=== PATIENT | female | born 1980 | race Caucasian/White ===

== ENCOUNTER 2018-06-29 21:57 | Inpatient (IN) | payer MEDICAID ==
[~2018-06-29] VITALS: Ht 162.6 cm; Wt 85.0 kg
[2018-06-29] MEDS ORDERED: ketorolac trometh. 30mg/ml inj. IV ONE (22:45)
[2018-06-29] MEDS ORDERED: proCHLORperazine 10 MG/2 ml inj IV ONE (22:45)
[2018-06-29] MEDS ORDERED: acetaminophen 325mg tablet PO ONE (22:45)
[2018-06-29] MEDS ORDERED: normal saline 1000ML IV soln IVB ONE (22:45)
[2018-06-29] MEDS: magnesium 1gm/100ml D5W IVPB 100 ML IV SCH (23:07)
[2018-06-29 23:58] LABS: CLARITY,URINE CLEAR (Clear); COLOR,URINE YELLOW (Yellow); GLUCOSE, URINE NEGATIVE (Neg); KETONES,URINE NEGATIVE (Neg); LEUKOCYTE ESTERASE ,URINE SMALL (Neg); NITRITES, URINE NEGATIVE (Neg); OCCULT BLOOD,URINE SMALL (Neg); PROTEIN,URINE NEGATIVE (Neg); UROBILINOGEN,URINE 0.2 E.U/dL (0.2-1.0)
[2018-06-29 23:59] LABS: URINE HCG NEGATIVE (NEG)
[2018-06-30 00:12] LABS: UA COLLECTION TYPE VOIDED
[2018-06-30 00:16] LABS: BACTERIA,URINE FEW /HPF (Neg); RBC,URINE 0-2 /HPF (0-2); SQUAMOUS EPITHELIAL CELL,UR FEW /LPF (FEW); WBC,URINE 0-4 /HPF (0-4)
[2018-06-30 00:31] LABS: BASOPHILS # (AUTO) 0.2 X10'3 (0-0.2); BASOPHILS % (AUTO) 0.8 % (0-1); EOSINOPHILS % (AUTO) 0 % (0-6); HEMATOCRIT 42.4 % (35.0-45.0); HEMOGLOBIN 14.3 g/dl (12.0-16.0); LYMPHOCYTES # (AUTO) 1.9 X10'3 (1.1-4.8); LYMPHOCYTES % (AUTO) 9.7 % (21-51); MEAN CORPUSCULAR HEMOGLOBIN 29.9 PG (27.0-31.0); MEAN CORPUSCULAR HGB CONC 33.7 % (33.0-36.5); MEAN CORPUSCULAR VOLUME 88.7 FL (78-98); MEAN PLATELET VOLUME 8.9 FL (7.4-10.4); MONOCYTES # (AUTO) 0.3 X10'3 (0-0.9); MONOCYTES % (AUTO) 1.8 % (2-12); NEUTROPHILS % (AUTO) 87.7 % (42-75); PLATELET COUNT 437 X10'3 (140-440); RED BLOOD COUNT 4.78 X10'6 (4.20-5.60); RED CELL DISTRIBUTION WIDTH 13.1 % (11.5-14.5); WHITE BLOOD COUNT 19.4 X10'3 (4.5-11.0)
[2018-06-30 00:45] LABS: ALANINE AMINOTRANSFERASE 21 U/L (12-78); ALBUMIN 3.6 G/DL (3.4-5.0); ALBUMIN/GLOBULIN RATIO 0.8 (1.1-1.5); ALKALINE PHOSPHATASE 84 IU/L (46-116); ANION GAP 10 (8-16); ASPARTATE AMINO TRANSFERASE 19 U/L (10-37); BILIRUBIN,TOTAL 0.4 MG/DL (0.1-1.0); BLOOD UREA NITROGEN 8 MG/DL (7-18); BUN/CREATININE RATIO 10.7 (6.6-38.0); CALCIUM 8.6 MG/DL (8.5-10.1); CHLORIDE 103 MMOL/L (99-107); CREATININE 0.75 MG/DL (0.40-0.90); GLUCOSE 100 MG/DL (70-104); SODIUM 141 MMOL/L (135-145); TOTAL CARBON DIOXIDE 27.7 MMOL/L (24-32); TOTAL PROTEIN 8.2 G/DL (6.4-8.2); eGFR 87 ML/MIN
[2018-06-30] MEDS: magnesium 1gm/100ml D5W IVPB 100 ML IV SCH (00:47)
[2018-06-30 00:48] LABS: POTASSIUM 3.5 MMOL/L (3.5-5.1)
[2018-06-30] MEDS ORDERED: morphine 4 MG/ML inj SYRINge IV ONE (01:00)
[2018-06-30] MEDS ORDERED: fentaNYL/PF 50MCG/1 ML 2ML syringe IV ONE (01:30)
[2018-06-30] MEDS ORDERED: dexamethasone sod phosphate 10mg/ml inj IV STA (01:56)
[2018-06-30] MEDS ORDERED: CefTRIAXone 2gm/D5W 50ml 50 ML IV ONE (02:00)
[2018-06-30 03:30] LABS: GLUCOSE,CSF 56 MG/DL (40-75); TOTAL PROTEIN,CSF 167 MG/DL (15-45)
[2018-06-30] MEDS ORDERED: vancomycin inj 1,000 MG in normal saline 250ml IV soln 250 ML IV ONE (03:35)
[2018-06-30 03:40] LABS: APPEARANCE,CSF CLEAR; CSF SUPERNATANT COLOR COLORLESS; CSF VOLUME 5 ML; TUBE# COUNTED 1
[2018-06-30] MEDS ORDERED: vancomycin/NS 1 GM ADD-VANTAGE 250 ML IV ONE ×3 (03:40→08:30)
[2018-06-30 03:41] LABS: CSF RBC 10 /CU MM (0); LYMPHOCYTES,CSF 97 % (40-80); MONOCYTES,CSF 3 % (15-45)
[2018-06-30 03:44] LABS: APPEARANCE,CSF CLEAR; CSF SUPERNATANT COLOR COLORLESS; CSF VOLUME 5 ML; CSF WBC CT 420 /CU MM (0-5)
[2018-06-30 03:45] LABS: CSF RBC 12.5 /CU MM (0); CSF WBC CT 455 /CU MM (0-5); TUBE# COUNTED 4
[2018-06-30 03:46] LABS: LYMPHOCYTES,CSF 96 % (40-80); MONOCYTES,CSF 4 % (15-45)
[2018-06-30] MEDS ORDERED: normal saline 1000ml 1,000 ML IV ONE (03:55)
[2018-06-30] MEDS ORDERED: HYDROmorphone 1 mg/ml syringe IV ONE (03:55)
[2018-06-30] MEDS ORDERED: acetaminophen 325mg tablet PO PRN (04:20)
[2018-06-30] MEDS ORDERED: mag hydrox/Alum hydrox/simeth 30ml oral suspension PO PRN (04:20)
[2018-06-30] MEDS: normal saline 1000ml 1,000 ML IV SCH ×3 (04:25→21:12)
[2018-06-30 05:00] VITALS: BP 139/93
[2018-06-30] MEDS: HYDROmorphone 1 mg/ml syringe IV PRN ×5 (07:49→23:29)
[2018-06-30] MEDS ORDERED: dexamethasone sod phosphate 10mg/ml inj IV SCH (08:00)
[2018-06-30 10:00] VITALS: BP 128/68
[2018-06-30] MEDS ORDERED: potassium Cl 20 mEq SR tablet PO PRN (10:35)
[2018-06-30] MEDS ORDERED: magnesium Cl slow-release 64mg tablet PO PRN (10:35)
[2018-06-30] MEDS ORDERED: potassium Cl 40MEQ/NS 500ml 500 ML IV PRN ×2 (10:35)
[2018-06-30] MEDS ORDERED: magnesium 4gm in 100ml NS 100 ML IV PRN (10:35)
[2018-06-30] MEDS ORDERED: VENL150C58 PO (11:09)
[2018-06-30] MEDS ORDERED: NORG1TAB77 PO (11:09)
[2018-06-30] MEDS ORDERED: VENL75CA61 PO (11:09)
[2018-06-30] MEDS ORDERED: HYDR12.55 PO (11:09)
[2018-06-30 13:18] LABS: HIV ANTIBODY 1&2 RAPID NON-REACTIVE (Neg)
[2018-06-30] MEDS ORDERED: CefTRIAXone 2gm/D5W 50ml 50 ML IV SCH (14:00)
[2018-06-30] MEDS: ondansetron/PF 4mg/2ml inj IV PRN (14:58)
[2018-06-30 15:30] VITALS: BP 139/93
[2018-06-30] MEDS ORDERED: NORMAL SALINE IV SCH (16:00)
[2018-06-30] MEDS ORDERED: ACYCLOVIR IV SCH (16:00)
[2018-06-30] MEDS ORDERED: acyclovir 1 GM inj IV SCH (16:00)
[2018-06-30] MEDS: vancomycin inj 1,250 MG in normal saline 250ml IV soln 250 ML IV SCH (16:00)
[2018-06-30 18:00] VITALS: BP 133/75
[2018-06-30] MEDS ORDERED: venlafaxine XR 75mg capsule (Q24H) PO ONE (19:20)
[2018-06-30] MEDS: fluconazole 100mg tablet PO SCH (21:08)
[2018-06-30] MEDS: lactobacillus rhamnosus 10,000 MMU CELLS/CAPSULE PO SCH (21:09)
[2018-06-30 22:00] VITALS: BP 122/76
[2018-06-30] MEDS: CefTRIAXone 2gm/D5W 50ml 50 ML IV SCH (23:25)
[2018-07-01] MEDS: vancomycin inj 1,250 MG in normal saline 250ml IV soln 250 ML IV SCH ×2 (00:26→08:00)
[2018-07-01] MEDS: NORMAL SALINE IV SCH ×3 (02:26→18:32)
[2018-07-01] MEDS: ACYCLOVIR IV SCH ×3 (02:26→18:32)
[2018-07-01] MEDS: HYDROmorphone 1 mg/ml syringe IV PRN ×3 (02:28→10:24)
[2018-07-01] MEDS: magnesium hydroxide 30ml (MOM) UD suspension PO PRN (03:48)
[2018-07-01 06:00] VITALS: BP 112/66
[2018-07-01 06:36] LABS: BASOPHILS % (AUTO) 0.2 % (0-1); EOSINOPHILS # (AUTO) 0.2 X10'3 (0-0.9); EOSINOPHILS % (AUTO) 1.2 % (0-6); HEMATOCRIT 34.2 % (35.0-45.0); HEMOGLOBIN 11.4 g/dl (12.0-16.0); LYMPHOCYTES # (AUTO) 3.6 X10'3 (1.1-4.8); LYMPHOCYTES % (AUTO) 26.3 % (21-51); MEAN CORPUSCULAR HEMOGLOBIN 29.6 PG (27.0-31.0); MEAN CORPUSCULAR HGB CONC 33.3 % (33.0-36.5); MONOCYTES # (AUTO) 1.1 X10'3 (0-0.9); NEUTROPHILS # (AUTO) 8.9 X10'3 (1.8-7.7); NEUTROPHILS % (AUTO) 64.3 % (42-75); PLATELET COUNT 341 X10'3 (140-440); RED BLOOD COUNT 3.84 X10'6 (4.20-5.60); RED CELL DISTRIBUTION WIDTH 14.1 % (11.5-14.5); WHITE BLOOD COUNT 13.8 X10'3 (4.5-11.0)
[2018-07-01 06:50] LABS: ALANINE AMINOTRANSFERASE 17 U/L (12-78); ALBUMIN 2.7 G/DL (3.4-5.0); ALBUMIN/GLOBULIN RATIO 0.8 (1.1-1.5); ALKALINE PHOSPHATASE 51 IU/L (46-116); ANION GAP 8 (8-16); ASPARTATE AMINO TRANSFERASE 12 U/L (10-37); BILIRUBIN,TOTAL 0.1 MG/DL (0.1-1.0); BLOOD UREA NITROGEN 13 MG/DL (7-18); BUN/CREATININE RATIO 18.6 (6.6-38.0); CALCIUM 8.4 MG/DL (8.5-10.1); CHLORIDE 105 MMOL/L (99-107); GLUCOSE 109 MG/DL (70-104); MAGNESIUM 2.1 MG/DL (1.5-2.4); PHOSPHORUS 3.1 MG/DL (2.3-4.5); POTASSIUM 3.3 MMOL/L (3.5-5.1); SODIUM 140 MMOL/L (135-145); TOTAL CARBON DIOXIDE 27.4 MMOL/L (24-32); TOTAL PROTEIN 6.3 G/DL (6.4-8.2); eGFR > 90 ML/MIN
[2018-07-01] MEDS: venlafaxine XR 75mg capsule (Q24H) PO SCH ×2 (07:59→08:00)
[2018-07-01] MEDS: fluconazole 100mg tablet PO SCH (08:00)
[2018-07-01] MEDS ORDERED: fluconazole 100mg tablet PO SCH (08:00)
[2018-07-01] MEDS: lactobacillus rhamnosus 10,000 MMU CELLS/CAPSULE PO SCH ×2 (08:00→21:02)
[2018-07-01] MEDS: normal saline 1000ml 1,000 ML IV SCH ×2 (10:16→16:16)
[2018-07-01] MEDS: ondansetron/PF 4mg/2ml inj IV PRN (11:46)
[2018-07-01] MEDS ORDERED: HYDROcodone/acetaminophen 5mg/325mg tablet PO PRN (12:10)
[2018-07-01] MEDS ORDERED: HYDROcodone/acetaminophen 10/325mg tab PO PRN ×2 (12:10→19:45)
[2018-07-01] MEDS: docusate sod 100mg capsule PO SCH ×2 (12:59→20:00)
[2018-07-01] MEDS: CefTRIAXone 2gm/D5W 50ml 50 ML IV SCH (12:59)
[2018-07-01] MEDS ORDERED: VANCOMYCIN LEVEL IV NR (15:30)
[2018-07-01 18:00] VITALS: BP 136/80
[2018-07-01] MEDS: potassium Cl 20 mEq SR tablet PO PRN (21:02)
[2018-07-01] MEDS: temazepam 15mg capsule PO PRN (21:03)
[2018-07-01] MEDS: HYDROcodone/acetaminophen 10/325mg tab PO PRN (21:03)
[2018-07-01] MEDS: heparin, porcine 5000 units/ml vial SQ SCH (21:03)
[2018-07-01 22:00] VITALS: BP 128/83
[2018-07-02] MEDS: CefTRIAXone 2gm/D5W 50ml 50 ML IV SCH ×2 (00:28→11:55)
[2018-07-02] MEDS: potassium Cl 20 mEq SR tablet PO PRN (00:28)
[2018-07-02] MEDS: NORMAL SALINE IV SCH ×3 (01:57→17:55)
[2018-07-02] MEDS: ACYCLOVIR IV SCH ×3 (01:57→17:55)
[2018-07-02] MEDS: HYDROcodone/acetaminophen 10/325mg tab PO PRN ×2 (01:58→20:36)
[2018-07-02] MEDS: normal saline 1000ml 1,000 ML IV SCH ×2 (05:19→20:45)
[2018-07-02 05:59] LABS: BASOPHILS # (AUTO) 0.1 X10'3 (0-0.2); BASOPHILS % (AUTO) 0.7 % (0-1); EOSINOPHILS # (AUTO) 0.3 X10'3 (0-0.9); EOSINOPHILS % (AUTO) 2.1 % (0-6); HEMATOCRIT 34.7 % (35.0-45.0); HEMOGLOBIN 11.7 g/dl (12.0-16.0); LYMPHOCYTES # (AUTO) 4.5 X10'3 (1.1-4.8); LYMPHOCYTES % (AUTO) 35.7 % (21-51); MEAN CORPUSCULAR HEMOGLOBIN 29.9 PG (27.0-31.0); MEAN CORPUSCULAR HGB CONC 33.6 % (33.0-36.5); MEAN CORPUSCULAR VOLUME 88.8 FL (78-98); MEAN PLATELET VOLUME 8.4 FL (7.4-10.4); MONOCYTES # (AUTO) 0.8 X10'3 (0-0.9); MONOCYTES % (AUTO) 6.1 % (2-12); NEUTROPHILS # (AUTO) 6.9 X10'3 (1.8-7.7); NEUTROPHILS % (AUTO) 55.4 % (42-75); PLATELET COUNT 350 X10'3 (140-440); RED BLOOD COUNT 3.91 X10'6 (4.20-5.60); RED CELL DISTRIBUTION WIDTH 13.9 % (11.5-14.5); WHITE BLOOD COUNT 12.5 X10'3 (4.5-11.0)
[2018-07-02 06:00] VITALS: BP 126/81
[2018-07-02 06:00] LABS: ALANINE AMINOTRANSFERASE 19 U/L (12-78); ALBUMIN 2.6 G/DL (3.4-5.0); ALBUMIN/GLOBULIN RATIO 0.7 (1.1-1.5); ALKALINE PHOSPHATASE 63 IU/L (46-116); ANION GAP 9 (8-16); ASPARTATE AMINO TRANSFERASE 14 U/L (10-37); BILIRUBIN,TOTAL 0.1 MG/DL (0.1-1.0); BLOOD UREA NITROGEN 9 MG/DL (7-18); BUN/CREATININE RATIO 11.5 (6.6-38.0); CALCIUM 8.1 MG/DL (8.5-10.1); CHLORIDE 104 MMOL/L (99-107); CREATININE 0.78 MG/DL (0.40-0.90); GLUCOSE 86 MG/DL (70-104); MAGNESIUM 1.9 MG/DL (1.5-2.4); PHOSPHORUS 3.3 MG/DL (2.3-4.5); SODIUM 140 MMOL/L (135-145); TOTAL CARBON DIOXIDE 27.1 MMOL/L (24-32); TOTAL PROTEIN 6.4 G/DL (6.4-8.2); eGFR 84 ML/MIN
[2018-07-02] MEDS: venlafaxine XR 75mg capsule (Q24H) PO SCH ×2 (07:51→07:53)
[2018-07-02] MEDS: lactobacillus rhamnosus 10,000 MMU CELLS/CAPSULE PO SCH ×2 (07:53→20:35)
[2018-07-02] MEDS: docusate sod 100mg capsule PO SCH ×2 (07:53→20:35)
[2018-07-02] MEDS: heparin, porcine 5000 units/ml vial SQ SCH ×2 (07:54→20:35)
[2018-07-02] MEDS: fluconazole 100mg tablet PO SCH (07:54)
[2018-07-02] MEDS: ondansetron/PF 4mg/2ml inj IV PRN ×3 (08:02→20:41)
[2018-07-02] MEDS ORDERED: temazepam 15mg capsule PO ONE (09:15)
[2018-07-02] MEDS ORDERED: temazepam 15mg capsule PO PRN (09:15)
[2018-07-02 10:00] VITALS: BP 124/70
[2018-07-02] MEDS: HYDROmorphone 1 mg/ml syringe IV PRN ×3 (10:27→22:55)
[2018-07-02] MEDS: magnesium hydroxide 30ml (MOM) UD suspension PO PRN (10:38)
[2018-07-02 18:00] VITALS: BP 122/78
[2018-07-02] MEDS: temazepam 15mg capsule PO PRN (20:41)
[2018-07-02 22:00] VITALS: BP 128/79
[2018-07-03] MEDS: CefTRIAXone 2gm/D5W 50ml 50 ML IV SCH (00:02)
[2018-07-03] MEDS: ACYCLOVIR IV SCH ×2 (02:00→09:13)
[2018-07-03] MEDS: NORMAL SALINE IV SCH ×2 (02:00→09:13)
[2018-07-03] MEDS: HYDROcodone/acetaminophen 10/325mg tab PO PRN ×5 (02:05→21:09)
[2018-07-03] MEDS: normal saline 1000ml 1,000 ML IV SCH ×3 (02:06→22:29)
[2018-07-03] MEDS: HYDROmorphone 1 mg/ml syringe IV PRN ×4 (03:25→19:53)
[2018-07-03] MEDS: magnesium hydroxide 30ml (MOM) UD suspension PO PRN (05:57)
[2018-07-03 06:00] VITALS: BP 113/74
[2018-07-03 06:32] LABS: BASOPHILS # (AUTO) 0.1 X10'3 (0-0.2); BASOPHILS % (AUTO) 0.6 % (0-1); EOSINOPHILS # (AUTO) 0.4 X10'3 (0-0.9); EOSINOPHILS % (AUTO) 3.6 % (0-6); HEMATOCRIT 37.4 % (35.0-45.0); HEMOGLOBIN 12.7 g/dl (12.0-16.0); LYMPHOCYTES # (AUTO) 3.5 X10'3 (1.1-4.8); LYMPHOCYTES % (AUTO) 31.2 % (21-51); MEAN CORPUSCULAR HEMOGLOBIN 30.1 PG (27.0-31.0); MEAN CORPUSCULAR VOLUME 88.5 FL (78-98); MEAN PLATELET VOLUME 8.4 FL (7.4-10.4); MONOCYTES # (AUTO) 0.7 X10'3 (0-0.9); MONOCYTES % (AUTO) 6.1 % (2-12); NEUTROPHILS # (AUTO) 6.6 X10'3 (1.8-7.7); NEUTROPHILS % (AUTO) 58.5 % (42-75); PLATELET COUNT 393 X10'3 (140-440); RED BLOOD COUNT 4.23 X10'6 (4.20-5.60); RED CELL DISTRIBUTION WIDTH 13.5 % (11.5-14.5); WHITE BLOOD COUNT 11.3 X10'3 (4.5-11.0)
[2018-07-03 06:45] LABS: ALANINE AMINOTRANSFERASE 22 U/L (12-78); ALBUMIN 2.7 G/DL (3.4-5.0); ALBUMIN/GLOBULIN RATIO 0.7 (1.1-1.5); ALKALINE PHOSPHATASE 65 IU/L (46-116); ANION GAP 8 (8-16); ASPARTATE AMINO TRANSFERASE 16 U/L (10-37); BILIRUBIN,TOTAL 0.2 MG/DL (0.1-1.0); BLOOD UREA NITROGEN 9 MG/DL (7-18); BUN/CREATININE RATIO 13.8 (6.6-38.0); CALCIUM 8.6 MG/DL (8.5-10.1); CHLORIDE 101 MMOL/L (99-107); CREATININE 0.65 MG/DL (0.40-0.90); GLUCOSE 95 MG/DL (70-104); MAGNESIUM 2.1 MG/DL (1.5-2.4); PHOSPHORUS 3.8 MG/DL (2.3-4.5); POTASSIUM 3.9 MMOL/L (3.5-5.1); SODIUM 138 MMOL/L (135-145); TOTAL CARBON DIOXIDE 29.3 MMOL/L (24-32); TOTAL PROTEIN 6.6 G/DL (6.4-8.2); eGFR > 90 ML/MIN
[2018-07-03 07:15] VITALS: BP 127/77
[2018-07-03] MEDS: fluconazole 100mg tablet PO SCH (09:02)
[2018-07-03] MEDS: docusate sod 100mg capsule PO SCH ×2 (09:02→19:53)
[2018-07-03] MEDS: lactobacillus rhamnosus 10,000 MMU CELLS/CAPSULE PO SCH ×2 (09:02→19:53)
[2018-07-03] MEDS: heparin, porcine 5000 units/ml vial SQ SCH ×2 (09:03→19:54)
[2018-07-03] MEDS: venlafaxine XR 75mg capsule (Q24H) PO SCH ×2 (09:23)
[2018-07-03 10:00] VITALS: BP 132/72
[2018-07-03] MEDS: valacyclovir 500mg tablet PO SCH (16:38)
[2018-07-03 18:00] VITALS: BP 122/69
[2018-07-03] MEDS: temazepam 15mg capsule PO PRN (21:09)
[2018-07-03] MEDS: metroNIDAZOLE 500mg tablet PO SCH (22:16)
[2018-07-03 22:35] VITALS: BP 131/93
[2018-07-04] MEDS: valacyclovir 500mg tablet PO SCH ×2 (00:16→08:46)
[2018-07-04] MEDS: HYDROmorphone 1 mg/ml syringe IV PRN ×3 (00:16→08:48)
[2018-07-04] MEDS: normal saline 1000ml 1,000 ML IV SCH (00:17)
[2018-07-04] MEDS: HYDROcodone/acetaminophen 10/325mg tab PO PRN ×3 (01:46→12:48)
[2018-07-04 05:39] LABS: BASOPHILS # (AUTO) 0.1 X10'3 (0-0.2); BASOPHILS % (AUTO) 0.6 % (0-1); EOSINOPHILS # (AUTO) 0.8 X10'3 (0-0.9); EOSINOPHILS % (AUTO) 6.3 % (0-6); HEMATOCRIT 37.5 % (35.0-45.0); HEMOGLOBIN 12.7 g/dl (12.0-16.0); LYMPHOCYTES # (AUTO) 3.7 X10'3 (1.1-4.8); LYMPHOCYTES % (AUTO) 28.8 % (21-51); MEAN CORPUSCULAR HEMOGLOBIN 30.1 PG (27.0-31.0); MEAN CORPUSCULAR HGB CONC 33.8 % (33.0-36.5); MEAN CORPUSCULAR VOLUME 89.1 FL (78-98); MONOCYTES # (AUTO) 0.8 X10'3 (0-0.9); MONOCYTES % (AUTO) 6.5 % (2-12); NEUTROPHILS # (AUTO) 7.4 X10'3 (1.8-7.7); NEUTROPHILS % (AUTO) 57.8 % (42-75); PLATELET COUNT 402 X10'3 (140-440); RED BLOOD COUNT 4.21 X10'6 (4.20-5.60); RED CELL DISTRIBUTION WIDTH 13.7 % (11.5-14.5); WHITE BLOOD COUNT 12.8 X10'3 (4.5-11.0)
[2018-07-04 06:00] VITALS: BP 109/67
[2018-07-04 06:15] LABS: ALANINE AMINOTRANSFERASE 21 U/L (12-78); ALBUMIN 2.9 G/DL (3.4-5.0); ALBUMIN/GLOBULIN RATIO 0.8 (1.1-1.5); ALKALINE PHOSPHATASE 62 IU/L (46-116); ANION GAP 8 (8-16); ASPARTATE AMINO TRANSFERASE 12 U/L (10-37); BILIRUBIN,TOTAL 0.3 MG/DL (0.1-1.0); BLOOD UREA NITROGEN 10 MG/DL (7-18); BUN/CREATININE RATIO 15.4 (6.6-38.0); CALCIUM 8.9 MG/DL (8.5-10.1); CHLORIDE 101 MMOL/L (99-107); CREATININE 0.65 MG/DL (0.40-0.90); GLUCOSE 91 MG/DL (70-104); MAGNESIUM 1.9 MG/DL (1.5-2.4); POTASSIUM 4.3 MMOL/L (3.5-5.1); SODIUM 138 MMOL/L (135-145); TOTAL CARBON DIOXIDE 28.7 MMOL/L (24-32); TOTAL PROTEIN 6.7 G/DL (6.4-8.2); eGFR > 90 ML/MIN
[2018-07-04] MEDS ORDERED: VALA10002 PO (08:22)
[2018-07-04] MEDS ORDERED: FLUC100T9 PO (08:22)
[2018-07-04] MEDS ORDERED: HYDR-3972 PO (08:22)
[2018-07-04] MEDS: docusate sod 100mg capsule PO SCH (08:46)
[2018-07-04] MEDS: lactobacillus rhamnosus 10,000 MMU CELLS/CAPSULE PO SCH (08:46)
[2018-07-04] MEDS: venlafaxine XR 75mg capsule (Q24H) PO SCH ×2 (08:46)
[2018-07-04] MEDS: metroNIDAZOLE 500mg tablet PO SCH (08:46)
[2018-07-04] MEDS: heparin, porcine 5000 units/ml vial SQ SCH (08:47)
[2018-07-04] MEDS ORDERED: METR500T PO (13:00)
[2018-07-04 19:13] LABS: HSV 1 PCR Negative (Negative); HSV 2 PCR Positive (Negative)
== END 2018-07-04 13:17 | disposition home or self-care (01) | DRG 51 ==
LOC: ER 21:58 → ED HOLD 06-30 04:16 → ORTHO 4S 06-30 05:00
PROVIDERS: ADMIT Internal Medicine; ATTEND Internal Medicine
PROC: 009U3ZZ Drainage of Spinal Canal, Percutaneous Approach (ICD-10-PCS; principal; 2018-06-29)
DX: A87.9 Viral meningitis, unspecified (principal); E87.2 Acidosis; A59.9 Trichomoniasis, unspecified; B37.3 Candidiasis of vulva and vagina; E87.6 Hypokalemia; R00.0 Tachycardia, unspecified; Z72.0 Tobacco use; Z88.8 Allergy status to other drugs, medicaments and biological substances; Z79.899 Other long term (current) drug therapy
CPT/HCPCS: 36415; 62270; 70450; 80053; 80202; 81001; 81003; 81025; 82945; 83605; 83735; 84100; 84157; 85025; 86703; 87015; 87040; 87070; 87088; 87210; 87529; 89051; 93005; 96365; 96367; 96375; 99285; G0378; J0133; J0696; J0780; J1100; J1170; J1644; J1885; J2270; J2405; J3010; J3370; J3490; J7030

== ENCOUNTER 2018-07-25 15:17 | Emergency (ER) | payer MEDICAID ==
[~2018-07-25] VITALS: Ht 162.6 cm; Wt 86.4 kg
[~2018-07-25 15:17] MED LIST: FLUC100T9 PO; HYDR-3972 PO; METR500T PO; NORG1TAB77 PO; VALA10002 PO; VENL150C58 PO; VENL75CA61 PO
[2018-07-25 16:05] VITALS: BP 147/85
[2018-07-25] MEDS ORDERED: HYDR-4353 PO (16:58)
[2018-07-25] MEDS ORDERED: CLIN300C70 PO (16:58)
[2018-07-25] MEDS ORDERED: HYDROcodone/acetaminophen 10/325mg tab PO ONE (17:00)
[2018-07-25] MEDS ORDERED: fluconazole 150mg tablet PO ONE (17:15)
== END 2018-07-25 17:45 | disposition home or self-care (01) ==
LOC: ER 15:17
DX: K04.7 Periapical abscess without sinus (principal); R22.0 Localized swelling, mass and lump, head; I10 Essential (primary) hypertension; J45.909 Unspecified asthma, uncomplicated; M19.90 Unspecified osteoarthritis, unspecified site; Z98.890 Other specified postprocedural states; Z88.1 Allergy status to other antibiotic agents; Z79.899 Other long term (current) drug therapy
CPT/HCPCS: 99283

== ENCOUNTER 2019-01-21 21:40 | Emergency (ER) | payer MEDICAID ==
[~2019-01-21] VITALS: Ht 162.6 cm; Wt 85.4 kg
[~2019-01-21 21:40] MED LIST changes: -METR500T PO
[2019-01-21 21:43] VITALS: BP 138/93
[2019-01-21] MEDS ORDERED: clindamycin 150mg capsule PO ONE (22:15)
[2019-01-21] MEDS ORDERED: BUPIVAcaine/PF 2.5 mg/ml (0.25%) 30ml vial IJ ONE (22:15)
[2019-01-21] MEDS ORDERED: HYDR-3965 PO (22:53)
[2019-01-21] MEDS ORDERED: CLIN150C8 PO (22:53)
== END 2019-01-21 23:18 | disposition home or self-care (01) ==
LOC: ER 21:41
DX: K08.89 Other specified disorders of teeth and supporting structures (principal); I10 Essential (primary) hypertension; J45.909 Unspecified asthma, uncomplicated; M19.90 Unspecified osteoarthritis, unspecified site; Z98.890 Other specified postprocedural states; Z79.899 Other long term (current) drug therapy; Z88.1 Allergy status to other antibiotic agents
CPT/HCPCS: 99283; J3490

== ENCOUNTER 2023-02-08 10:53 | Emergency (ER) | payer MEDICAID ==
[~2023-02-08] VITALS: Ht 162.6 cm; Wt 90.0 kg
[~2023-02-08 10:53] MED LIST changes: +CLIN-214 PO; +FLUC100T64 PO; -FLUC100T9 PO
[2023-02-08 11:08] VITALS: BP 128/90
[2023-02-08] MEDS ORDERED: dexamethasone sod phosphate 10mg/ml inj IV STA (13:36)
[2023-02-08] MEDS ORDERED: LORazepam 2 mg/ml vial IV ONE (13:40)
[2023-02-08 14:10] LABS: ALANINE AMINOTRANSFERASE 24 U/L (12-78); ALBUMIN 3.1 G/DL (3.4-5.0); ALBUMIN/GLOBULIN RATIO 0.8 (1.1-1.5); ALKALINE PHOSPHATASE 79 IU/L (46-116); ANION GAP 12 (8-16); ASPARTATE AMINO TRANSFERASE 10 U/L (10-37); BILIRUBIN,TOTAL 0.4 MG/DL (0.1-1.0); BLOOD UREA NITROGEN 14 MG/DL (7-18); BUN/CREATININE RATIO 18.7 (10.0-20.0); CALCIUM 8.6 MG/DL (8.5-10.1); CHLORIDE 103 MMOL/L (99-107); CREATININE 0.75 MG/DL (0.40-0.90); GLUCOSE 104 MG/DL (70-104); LIPASE 75 U/L (73-393); POTASSIUM 3.1 MMOL/L (3.5-5.1); SODIUM 142 MMOL/L (135-145); TOTAL CARBON DIOXIDE 27.5 MMOL/L (24-32); eGFR 85 ML/MIN
[2023-02-08] MEDS ORDERED: iohexol 300mg/ml 100ml inj. ONE (14:45)
[2023-02-08 15:06] LABS: BASOPHILS % (AUTO) 0.3 % (0-1); EOSINOPHILS # (AUTO) 0.1 X10'3 (0-0.9); EOSINOPHILS % (AUTO) 0.6 % (0-6); HEMATOCRIT 38.4 % (35.0-45.0); HEMOGLOBIN 12.8 g/dl (12.0-16.0); LYMPHOCYTES # (AUTO) 3.1 X10'3 (1.1-4.8); LYMPHOCYTES % (AUTO) 18.9 % (21-51); MEAN CORPUSCULAR HEMOGLOBIN 29.7 PG (27.0-31.0); MEAN CORPUSCULAR HGB CONC 33.2 g/dL (33.0-36.5); MEAN CORPUSCULAR VOLUME 89.3 FL (78-98); MEAN PLATELET VOLUME 8.3 FL (7.4-10.4); MONOCYTES % (AUTO) 6.1 % (2-12); NEUTROPHILS % (AUTO) 74.1 % (42-75); PLATELET COUNT 325 X10'3 (140-440); RED CELL DISTRIBUTION WIDTH 13.3 % (11.5-14.5); WHITE BLOOD COUNT 16.2 X10'3 (4.5-11.0)
[2023-02-08] MEDS ORDERED: CLINDAmcin 900mg/NS 50ml IVPB 50 ML IV ONE (15:45)
[2023-02-08] MEDS ORDERED: ketorolac trometh. 30mg/ml inj. IV ONE (15:50)
[2023-02-08] MEDS ORDERED: potassium Cl 20 mEq SR tablet PO ONE (16:20)
[2023-02-08] MEDS ORDERED: PRED20TA PO (16:25)
[2023-02-08] MEDS ORDERED: AMOX-117 PO (16:25)
== END 2023-02-08 16:52 | disposition home or self-care (01) ==
LOC: ER 10:55
DX: J03.80 Acute tonsillitis due to other specified organisms (principal); R59.1 Generalized enlarged lymph nodes; E87.6 Hypokalemia; I10 Essential (primary) hypertension; J45.909 Unspecified asthma, uncomplicated; Z88.1 Allergy status to other antibiotic agents; Z79.899 Other long term (current) drug therapy
CPT/HCPCS: 36415; 70491; 80053; 83690; 85025; 87880; 96365; 96375; 99285; J1100; J1885; J2060; J3490; Q9967